=== PATIENT | female | born 1960 | race Caucasian/White ===

== ENCOUNTER → 2023-07-04 12:11 | Outpatient (REF) | payer OTHER, SELFPAY | LOC: RAD 12:11 | PROVIDERS: ATTENDING PHYSICIAN Family Medicine | DX: R05.1 Acute cough (principal) | CPT/HCPCS: 71046 ==

== ENCOUNTER 2023-08-10 11:22 | Emergency (ER) | payer OTHER, SELFPAY ==
[2023-08-10 11:25] VITALS: BP 170/91
[2023-08-10 11:52] LABS: % Basophils 0.6 % (0-2); % Immature Granulocytes 0.3 % (0-0.5); % Lymphocytes 24.7 % (20.5-51.1); % Monocytes 5.4 % (1.7-9.3); Absolute Eosinophils 0.1 10^3/uL (0-0.7); Absolute Lymphocytes 1.7 10^3/uL (1.2-3.4); Absolute Monocytes 0.4 10^3/uL (0.1-0.6); Absolute Neutrophils 4.6 10^3/uL (1.4-6.5); Hematocrit 35.8 % (37.0-47.0); Hemoglobin 11.9 g/dL (12.0-16.0); Mean Corp Hgb Conc. 33.2 g/dL (33.0-37.0); Mean Corpuscular Hgb 30.9 pg (27.0-31.0); Mean Platelet Volume 10.4 fL (7.4-10.4); Nucleated Red Blood Cells % 0 %; Platelet Count 240 10^3/uL (130-400); Red Blood Cell Count 3.85 10^6/uL (4.20-5.40); Red Cell Dist. Width 12.4 % (11.5-14.5); White Blood Cell Count 6.9 10^3/uL (4.8-10.8)
[2023-08-10 12:04] LABS: APTT 28.2 Sec (23.4-35.0); INR 0.97; PT 12.7 Sec (11.4-14.6)
[2023-08-10 12:07] VITALS: BP 146/78
[2023-08-10 12:17] LABS: Troponin I < 0.012 ng/ml
[2023-08-10 12:23] LABS: ALT (SGPT) 18 U/L (0-35); AST (SGOT) 21 U/L (14-36); Albumin 4.2 g/dl (3.5-5.0); Alkaline Phosphatase 52 U/L (38-126); Blood Urea Nitrogen 14 mg/dl (7-17); Calcium 9.6 mg/dl (8.4-10.2); Carbon Dioxide 27 mmol/L (22-30); Chloride 102 mmol/L (98-107); Glucose 168 mg/dl (70-99); Magnesium 1.9 mg/dl (1.6-2.3); Potassium 3.6 mmol/L (3.5-5.1); Sodium 137 mmol/L (135-145); Total Bilirubin 0.6 mg/dl (0.2-1.3); Total Protein 7.1 g/dl (6.3-8.2); eGFR > 60.00
--- NOTE | 2023-08-10 12:34 | ED.GENMED ---
History of Present Illness
General
Chief Complaint: Heart Rate Problem
Source: patient
Exam Limitations: none
Time Seen by Provider: 08/10/23 12:32
Nursing documentation reviewed up to this point in time: agreed with
Travel History
Have you had any contact with someone who has COVID-19?: No
Do you have any symptoms of coronavirus? Fever > 100 degrees, chills, cough, shortness of breath, sore throat, loss of taste or smell, muscle aches, or headache?: No
History of Present Illness
History of Present Illness:
62-year-old female with history of HTN, MVP, hypothyroid presents stating she had heart palpitations from 6:30 AM until arrival here about an hour and a half ago. She woke up at 3 AM today instead of her usual 5 AM to going to work 2 hours early,
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 She has had palpitations in the past but never lasted that long. She had no chest pain or shortness of breath, lightheadedness or sweating with the
palpitations. She does feel like she is stressed. She mistakenly took a double dose of her carvedilol 6.25 mg and Synthroid 2 days ago so she did not take them yesterday and started them up again this morning.
Past History
Past History
ED Past Medical History: HTN, Valvular disease (MVP), Hypothyroidism and Other
ED Past Surgical History: Orthopedic
Social History
Tobacco: Non-smoker
Living: with family
Employment: Employed
Review of Systems
Review of Systems
Allergies reviewed?: Yes
All Other Systems: ROS reviewed and negative except as documented in HPI and ROS
Constitutional: Reports fatigue; Denies fever or chills
Respiratory: Denies trouble breathing
Cardiac: Reports palpitations; Denies chest pain, diaphoresis or syncope
ABD/GI: Denies abdominal pain, nausea, vomiting, diarrhea or anorexia
: Denies dysuria, frequency or difficulty voiding
Musculoskeletal: Reports no symptoms
Skin: Reports no symptoms
Neurological: Reports no symptoms
Phy Exam
Physical Exam
Physical Exam:
GENERAL: No acute distress. A&Ox3.
CONSTITUTIONAL: Afebrile.
EYES: clear, conjunctivae normal
ENMT: moist mucus membranes, Pharynx nl
RESPIRATORY: Regular respirations, nonlabored, lungs clear.
CARDIOVASCULAR: Regular rate and rhythm, no murmurs, no rubs.
GI: Soft, nontender, normal BS
MUSCULOSKELETAL: Moves with ease. Well perfused.
SKIN: Warm, dry, pink
PSYCH: Normal mood and affect. Well kept, interactive and appropriate
NEUROLOGIC: Awake, alert and oriented. No focal neurological deficits
Course
Orders/Labs/Results
Orders:
Orders
08/10/23 11:29
ECG [Electrocardiogram (*1)] Urgent
Reason for Study: Palpitations
EKG- Treatment ONCE
08/10/23 11:38
Complete Blood Count/With Diff Urgent
Comprehensive Metabolic Panel Urgent
Magnesium Urgent
PTT Urgent
Prothrombin Time Urgent
TSH Reflex To Free T4 Urgent
Comment: TSH REFLEX T4 ADDED ON BY FLOOR 1PM
Troponin I Urgent
08/10/23 13:00
Add On- LAB Urgent
Tests Added?: TSH reflex T4
Abnormal Lab Results
08/10/23
11:38
RBC 3.85 L 10^6/uL
(4.20-5.40)
Hgb 11.9 L g/dL
(12.0-16.0)
Hct 35.8 L %
(37.0-47.0)
Glucose 168 H mg/dl
(70-99)
08/10/23 11:38
08/10/23 11:38
Vital Signs
Initial and Last Documented VS:
Initial Vital Signs
Temp Pulse Resp BP Pulse Ox
97.2 F 81 18 170/91 94
08/10/23 11:25 08/10/23 11:25 08/10/23 11:25 08/10/23 11:25 08/10/23 11:25
Last Documented Vital Signs
Temp Pulse Resp BP Pulse Ox
97.2 F 64 14 146/78 97
08/10/23 11:25 08/10/23 12:45 08/10/23 12:45 08/10/23 12:07 08/10/23 12:45
MDM/Problems Addressed
MDM/Problems Addressed:
62-year-old female with history of HTN, MVP, hypothyroid presents stating she had heart palpitations from 6:30 AM until arrival here about an hour and a half ago. She woke up at 3 AM today instead of her usual 5 AM to going to work 2 hours early,
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 She has had palpitations in the past but never lasted that long. She had no chest pain or shortness of breath, lightheadedness or sweating with the
palpitations. She does feel like she is stressed. She mistakenly took a double dose of her carvedilol 6.25 mg and Synthroid 2 days ago so she did not take them yesterday and started them up again this morning.
EKG NSR
CBC normal
CMP normal troponin normal
12:57 PM
No episodes of fast heart rate while here.
Stable for discharge
*EKG
EKG Intrepretation Date: 08/10/23
Interpretation: normal
Rate: normal
Rhythm: sinus
[place]: normal axis
Interval: normal interval
QRS Pattern: normal QRS
Ischemia: no ischemia
*Critical Care Note
Total Time (30-74mins, 75-104mins- exclusive of procedures): Not Applicable
ED Attending Note
-
Portions of this chart may have been created with voice recognition software.� Occasional wrong word or��sound alike� substitutions may have occurred due to the inherent limitations of voice recognition software.
Discharge Plan
Departure
Patient Disposition: Home (Routine Discharge)
Date of Disposition: 08/10/23
Time of Disposition: 12:57
Patient with high blood pressure during this ER visit?: No
Condition: Good
Discharge Problem:
Heart palpitations
Instructions: Palpitations (DC)
Referrals:
Wood Dee, DO [Family Provider] - As needed
Activity Restrictions/Additional Instructions:
As we discussed, your workup here today shows nothing worrisome.
See your primary doctor or siding mechanic if palpitations continue.
Return here immediately if your palpitations are associated with breaking out in a sweat, feeling nauseous or vomiting, chest pain or feeling sicker in any way.
Interventions
Interventions:
*Risk Screen - Suicide Last Done: 08/10/23 11:25
*General Assessment Last Done: 08/10/23 11:25
*Neglect/Abuse Screening Last Done: 08/10/23 11:25
ED- Fall Risk Assessment Last Done: 08/10/23 12:58
*Nursing Disposition Last Done: 08/10/23 13:34
ED- Cardiac Assessment Last Done: 08/10/23 12:58
ED- Pulmonary Assessment Last Done: 08/10/23 12:58
Discharge Date and Time
Discharge Date/Time: 08/10/23 13:36
Print Language: CANADIAN
[2023-08-10 12:58] VITALS: BMI 34.1
[2023-08-10 14:08] LABS: TSH Reflex To Free T4 0.77 uIU/ml (0.47-4.68)
== END 2023-08-10 13:36 | disposition home or self-care (01) ==
LOC: EMR 11:22
PROVIDERS: EMERGENCY PHYSICIAN Emergency Medicine; FAMILY PHYSICIAN Family Medicine
DX: R00.2 Palpitations (principal); I10 Essential (primary) hypertension; I34.1 Nonrheumatic mitral (valve) prolapse; E03.9 Hypothyroidism, unspecified; Z88.0 Allergy status to penicillin; Z88.8 Allergy status to other drugs, medicaments and biological substances
CPT/HCPCS: 99283; 80053; 83735; 84443; 84484; 85025; 85610; 85730; 93005

== ENCOUNTER → 2023-08-24 13:13 | Outpatient (REF) | payer OTHER, SELFPAY | LOC: RAD 13:13 | PROVIDERS: ATTENDING PHYSICIAN Family Medicine | DX: I82.401 Acute embolism and thrombosis of unspecified deep veins of right lower extremity (principal) | CPT/HCPCS: 93971 ==

== ENCOUNTER 2024-01-15 06:19 | Day surgery (SDC) | payer OTHER, SELFPAY ==
[2024-01-08 09:06] LABS: Hematocrit 34.1 % (37.0-47.0); Hemoglobin 11.6 g/dL (12.0-16.0); Mean Corpuscular Hgb 31.4 pg (27.0-31.0); Mean Corpuscular Volume 92.4 fL (81.0-99.0); Mean Platelet Volume 10.5 fL (7.4-10.4); Platelet Count 263 10^3/uL (130-400); Red Blood Cell Count 3.69 10^6/uL (4.20-5.40); Red Cell Dist. Width 12.6 % (11.5-14.5); White Blood Cell Count 7.5 10^3/uL (4.8-10.8)
[2024-01-08 10:17] LABS: Blood Urea Nitrogen 26 mg/dl (7-17); Calcium 9.4 mg/dl (8.4-10.2); Carbon Dioxide 28 mmol/L (22-30); Chloride 103 mmol/L (98-107); Glucose 106 mg/dl (70-99); Potassium 4.7 mmol/L (3.5-5.1); Sodium 143 mmol/L (135-145); eGFR > 60.00
[2024-01-08 12:39] VITALS: BMI 32.7
[2024-01-15] VITALS (11 sets, daily range): BP systolic 107–159; BP diastolic 59–88
[2024-01-15] MEDS: Pyridium 200 MG PO (11:18)
[2024-01-15] MEDS: HEPARIN 5000 UNITS SC (11:18)
[2024-01-15] MEDS: NORMOSOL-R/PLASMALYTE-A 1000 IV (11:19)
== END 2024-01-15 17:48 | disposition home or self-care (01) ==
LOC: SDS 06:19
PROVIDERS: ATTENDING PHYSICIAN Obstetrics & Gynecology; FAMILY PHYSICIAN Family Medicine
DX: N81.2 Incomplete uterovaginal prolapse (principal); N39.3 Stress incontinence (female) (male)
CPT/HCPCS: 57425; 58542; 88305; 80048; 85027; 86850; 86900; 86901; C1763; J1580

== ENCOUNTER → 2024-06-10 15:42 | Outpatient (REF) | payer OTHER, SELFPAY | LOC: HWRCS 15:42 | PROVIDERS: ATTENDING PHYSICIAN Internal Medicine Cardiovascular Disease; FAMILY PHYSICIAN Family Medicine | DX: R00.2 Palpitations (principal); I10 Essential (primary) hypertension | CPT/HCPCS: 93306 ==